=== PATIENT | male | born 1995 | race Caucasian/White ===

== ENCOUNTER 2018-03-17 16:09 | Emergency (ER) | payer SELFPAY ==
[~2018-03-17] VITALS: Ht 185.4 cm; Wt 75.0 kg
[2018-03-17 16:25] VITALS: Ht 185.4 cm; Wt 75.0 kg
[2018-03-17] MEDS ORDERED: VOLTAREN75 MG PO (16:59)
[2018-03-17] MEDS ORDERED: BACTRIM 400-801 TAB PO (16:59)
[2018-03-17 17:39] VITALS: BP 120/72
== END 2018-03-17 17:40 | disposition home or self-care (01) ==
LOC: D.ER 16:09
DX: L03.311 Cellulitis of abdominal wall (principal); F17.200 Nicotine dependence, unspecified, uncomplicated

== ENCOUNTER 2018-07-10 18:05 | Emergency (ER) | payer SELFPAY ==
[~2018-07-10] VITALS: Ht 185.4 cm; Wt 72.3 kg
[~2018-07-10 18:05] MED LIST: BACTRIM 400-801 TAB PO; VOLTAREN75 MG PO
[2018-07-10 18:13] VITALS: Ht 185.4 cm; Wt 72.3 kg
[2018-07-10 19:18] LABS: APPEARANCE CLEAR (CLEAR); COLOR YELLOW (YELLOW)
[2018-07-10 19:19] LABS: BACTERIA FEW /hpf (NONE SEEN); BILIRUBIN NEGATIVE (NEGATIVE); EPITHELIAL CELLS 0-5 /hpf (0-5); GLUCOSE NEGATIVE (NEGATIVE); KETONE NEGATIVE (NEGATIVE); NITRITE NEGATIVE (NEGATIVE); PROTEIN 1+ mg/dL (NEGATIVE); UROBILINOGEN NORMAL (NORMAL); WHITE CELLS - URINE 0-5 /hpf (0-5)
[2018-07-10] MEDS ORDERED: TORADOL10 MG PO (19:56)
[2018-07-10] MEDS ORDERED: LEVOFLOXACIN500 MG PO (19:56)
[2018-07-10 20:34] VITALS: BP 128/71
== END 2018-07-10 20:34 | disposition home or self-care (01) ==
LOC: D.ER 18:05
PROVIDERS: Family Medicine
DX: N50.811 Right testicular pain (principal); N45.1 Epididymitis